=== PATIENT | female | born 1960 | race Caucasian/White ===

== ENCOUNTER 2020-10-05 11:39 | Emergency (ER) | payer BC, SELFPAY ==
--- NOTE | ~2020-10-05 | XR_ITS ---
EXAMINATION: XR knee LT 3V DATE: 10/05/2020 12:36 INDICATION: Left knee pain. TECHNIQUE: 3 views of left knee were obtained. COMPARISON: None. FINDINGS: Bone alignment is normal. No fracture. There is moderate osteoarthritis of medial and russell lofemoral compartments and mild osteoarthritis of lateral compartment. No knee joint effusion. IMPRESSION: 1. Moderate left knee osteoarthritis. Reviewed, dictated and finalized at location A. OPERATOR
[2020-10-05 11:51] VITALS: BP 142/80; PULSE 90; RESP 16; TEMP 36.7; O2SAT 99
--- NOTE | 2020-10-05 11:58 | ED.LOWEXIN ---
HPI - Extremity Injury (Lower) General Chief Complaint: Extremity Injury, Lower Stated Complaint: lt knee Pain Source: patient and RN notes reviewed Mode of arrival: ambulatory Limitations: no limitations History of Present Illness HPI Narrative: 60 year old female who presents to [facility] care with complaints of pain to her left knee which started about 4 days ago when she was getting into her bed. Patient states that her bed is tall and is a new bed but denies any twisting of knee or known injury when she got into bed. She states when she turned onto her side to go to sleep she had severe pain to the medial aspect of her left knee. Patient states that she has had 2 previous surgeries to the meniscus of the left knee with last one in 2008. Patient states that she either walks or does 30 minutes on the treadmill daily, she did on that day also with no problems but has not been able to bend knee since without pain. Patient states that she has been taking Ibuprofen, Aleve, using ice, elevating and resting her left knee with no improvement. Patient states that pain is sharp at times and sleeping has been difficult due to pain. MD complaint: other (knee pain) Onset (ago): day(s) (4) Injury: Left: knee (medial aspect) Type of Injury: unknown Place: home Relieving factors: NSAID, cold therapy and rest Exacerbating factors: weight bearing and other (bending) Associated symptoms: swelling Other symptoms: none Treatments prior to arrival: cold therapy, NSAIDS and other (elevation) Related Data Allergies Allergy/AdvReac Type Severity Reaction Status Date / Time prochlorperazine Allergy Cramping Verified 10/05/20 12:57 [From Compazine] of the Muscles Review of Systems Review of Systems: Narrative: CONSTITUTIONAL: Denies fever, chills, or sweats. EYES: Denies visual changes, redness, or discharge. ENT: Denies rhinorrhea, congestion, sore throat, or otalgia. CARDIOVASCULAR: Denies chest pain, palpitations, or edema. RESPIRATORY: Denies cough or dyspnea. GASTROINTESTINAL: Denies abdominal pain, nausea, vomiting, or diarrhea. GENITOURINARY: Denies dysuria or hematuria. SKIN: Denies rash or itching. MUSCULOSKELETAL: Denies back pain,positive for left knee medial joint pain, or myalgia. NEUROLOGIC: Denies headache, numbness, or weakness. PSYCHIATRIC: Denies anxiety or depression. All systems reviewed & are unremarkable except as noted in HPI and below PMFSH Past Medical History Medical History (Updated 10/05/20 @ 15:31 by Rosette Corrigan NP) Benign cyst of left breast Elevated cholesterol with high triglycerides Left knee pain Surgical History Surgical History (Updated 10/05/20 @ 15:30 by Rosette Corrigan NP) H/O cervical spine surgery H/O meniscectomy of right knee surgical repair X2 last 2008 History of meniscectomy of left knee Family History Family History (Updated 10/05/20 @ 15:33 by Rosette Corrigan NP) Father Hypertension Heart disease Mother Breast cancer Social History Social History (Updated 10/05/20 @ 15:35 by Rosette Corrigan NP) Smoking status: Never smoker Alcohol intake: current Substance use: never Living arrangements: with family Occupation/Education: retired Gender identity (if verbalized by the patient): Female Comments At time of signature, agree with nursing past medical, surgical, social and family history. There is no relevant family history pertinent to the presenting complaint Exam Narrative: Exam Narrative: GENERAL: Well-appearing, well-nourished, and in no acute distress. HEAD: Normocephalic, atraumatic. EYES: PERRLA and EOMI. ENT: Nares clear, no rhinorrhea or epistaxis. Mucous membranes moist. NECK: Supple.no lymphadenopathy CHEST: Clear to auscultation. No respiratory distress.SAO2 99% on room air HEART: Regular rate and rhythm. No murmur heard. Normal peripheral pulses. ABDOMEN: Soft, nontender, nondistended, normal active bowel sounds. EXTREMITIES: Normal ra
== END 2020-10-05 13:15 | disposition home or self-care (01) ==
PROVIDERS: Emergency Provider Registered Nurse
DX: M25.562 Pain in left knee (principal); M17.12 Unilateral primary osteoarthritis, left knee; E78.2 Mixed hyperlipidemia
CPT/HCPCS: 73562; 99213; G0463

== ENCOUNTER 2020-10-28 10:03 | Outpatient (CLI) | payer BC, SELFPAY ==
--- NOTE | ~2020-10-28 | MR_ITS ---
EXAMINATION: MR knee LT wo con DATE: 10/28/2020 11:12 INDICATION: Left knee pain TECHNIQUE: Magnetic resonance imaging (MRI) of the left knee was performed without intravenous contra st. Sequences included coronal PD-weighted FSE, coronal PD-weighted FS FSE, sagittal T2-weighted FSE , sagittal PD-weighted FS FSE and axial PD weighted fat saturated FSE. COMPARISON: None. FINDINGS: Medial compartment: There is medial extrusion of the small body of the medial meniscus, the latter likely reflecting sebastian ges of prior partial meniscectomy. There is an irregular contour along the inner free edge of the pos terior horn with a couple small radial tears along the inner third of the meniscus best appreciated o n axial series 3, image 14. There appears be a residual tear along the intra-articular surface of the remaining small meniscal body. Partial-thickness cartilage loss throughout the medial compartment mo st severe with minimal underlying subarticular edema at the medial margin of the medial tibial platea u and along portions of the anterior weightbearing medial femoral condyle. Cartilage thickness is rel atively preserved but with scattered deep chondral fissuring at the posterior weightbearing medial fe moral condyle. Small to moderate size marginal osteophytes are present. Lateral compartment: Lateral meniscus is normal. Deep chondral fissuring without degenerative subchondral changes at the p osterior aspect of the lateral tibial plateau. Partial thickness chondral ulceration and additional d eep fissuring at the anterior to central weightbearing lateral femoral condyle. Small marginal osteop hytes are present. Patellofemoral compartment: Partial-thickness chondral ulceration and deep fissuring without degenerative subchondral changes at the cephalad aspect of the medial patellar facet and apical ridge and along the medial trochlea. Shal low chondral ulceration at the cephalad and lateral aspect of the lateral trochlea. Tiny marginal ost eophytes are present. Ligaments and tendons: Anterior and posterior cruciate ligaments are normal. The medial collateral ligament and fibular marissa ateral ligament complex are normal. Minimal distal quadriceps and proximal patellar tendinopathy. The visualized medial and lateral hamstring tendons as well as the iliotibial band are normal. Fluid: Physiologic amount of fluid in the joint space. No loose osteochondral bodies identified. Osseous/other: Normal marrow signal aside from the minimal subarticular edema at the medial compartment. No fracture or pathologic marrow replacing process. IMPRESSION: 1. Residual/recurrent tears along the medial meniscus with change of likely prior partial meniscectom y at the medial meniscal body. 2. Tricompartmental osteoarthritis at the left knee, moderate severity with extensive moderate to hig h-grade chondral malacia in the medial compartment and mild with moderate grade chondromalacia in the lateral and patellofemoral compartments. Reviewed, dictated and finalized at location B. TOR TAX IMPRESSION: 1. Residual/recurrent tears along the medial meniscus with change of likely augustin or partial meniscectomy at the medial meniscal body. 2. Tricompartmental osteoarthritis at the left knee, moderate severity with ext ensive moderate to high-grade chondral malacia in the medial compartment and mi ld with moderate grade chondromalacia in the lateral and patellofemoral compart ments.
== END 2020-10-28 10:04 | disposition home or self-care (01) ==
LOC: ANHIMG 10:10
PROVIDERS: Visit Provider Orthopaedic Surgery
DX: M25.562 Pain in left knee (principal); S83.242A Other tear of medial meniscus, current injury, left knee, initial encounter; M17.12 Unilateral primary osteoarthritis, left knee; M94.262 Chondromalacia, left knee
CPT/HCPCS: 73721